=== PATIENT | female | born 1970 | race Two or more races ===

== ENCOUNTER → 2018-04-12 | Emergency (ER) | payer OTHER ==
[~2018-04-12] VITALS: Ht 152.4 cm; Wt 57.2 kg
[~2018-04-12] MED LIST: AMOX-CLAV 875-1 EACH PO; INTESTINEX680 M1 PO
== END | disposition home or self-care (01) ==
LOC: ER 02:03
DX: S70.372A Other superficial bite of left thigh, initial encounter (principal); W54.0XXA Bitten by dog, initial encounter; Y93.89 Activity, other specified; Y92.89 Other specified places as the place of occurrence of the external cause; Y99.8 Other external cause status